=== PATIENT | female | born 1955 | race Caucasian/White ===

== ENCOUNTER → 2016-12-16 | Outpatient (CLI) | payer OTHER ==
--- NOTE | 2016-12-17 13:12 | MM ---
Reason for exam: screening (asymptomatic). Last mammogram was performed 1 year and 2 months ago. Physical Findings: A clinical breast exam by your physician is recommended on an annual basis and results should be correlated with mammographic findings. MG Screening Mammo w CAD Bilateral CC and MLO view(s) were taken. Prior study comparison: October 03, 2015, bilateral MG screening mammo w CAD. February 10, 2003, bilateral screening mammogram. The breast tissue is heterogeneously dense. This may lower the sensitivity of mammography. No significant changes when compared with prior studies. ASSESSMENT: Benign, BI-RAD 2 RECOMMENDATION: Routine screening mammogram of both breasts in 1 year.
== END | disposition home or self-care (01) ==
LOC: RADMAMWWP 10:56
PROVIDERS: ATTEND Family Medicine
DX: Z12.31 Encounter for screening mammogram for malignant neoplasm of breast (principal)

== ENCOUNTER 2020-10-06 09:00 | Emergency (ER) | payer OTHER ==
[2020-10-06 09:08] VITALS: RESP 18
[2020-10-06] MEDS ORDERED: HYDROmorphone 0.5 MG/0.5 ML SYRINGE IVP STA (09:14)
[2020-10-06] MEDS ORDERED: SODIUM CHLORIDE 0.9% 500 ML 500 ML IV STA (09:14)
[2020-10-06] MEDS ORDERED: SODIUM CHLORIDE 0.9% 1,000 ML IV STA (09:14)
[2020-10-06 09:29] LABS: Basophils # (A) 0.1 k/uL (0-0.2); Basophils % (A) 1 %; Eosinophils # (A) 0.2 k/uL (0-0.7); Eosinophils % (A) 2 %; HGB 14.5 gm/dL (11.4-16.0); Lymphocytes # (A) 1.2 k/uL (1.0-4.8); Lymphocytes % (A) 12 %; MCH 32.7 pg (25.0-35.0); MCHC 33.7 g/dL (31.0-37.0); MCV 96.9 fL (80.0-100.0); Mean Platelet Volume 7.6; Monocytes # (A) 0.4 k/uL (0-1.0); Monocytes % (A) 4 %; Neutrophils # (A) 8.1 k/uL (1.3-7.7); Neutrophils % (A) 81 %; Platelet Count 217 k/uL (150-450); RBC 4.44 m/uL (3.80-5.40); RDW 12.4 % (11.5-15.5)
[2020-10-06 09:40] LABS: Albumin 4.3 g/dL (3.5-5.0); Calcium 9.6 mg/dL (8.4-10.2); Potassium 4.3 mmol/L (3.5-5.1); Total Bilirubin 0.5 mg/dL (0.2-1.3); Total Protein 6.9 g/dL (6.3-8.2)
[2020-10-06 09:41] LABS: Appearance,Urine Clear (Clear); Bilirubin,Urine Negative (Negative); Blood,Urine Large (Negative); Color,Urine Yellow; Glucose,Urine (UA) Negative (Negative); Ketones,Urine Negative (Negative); Leukocyte Esterase,Urine Negative (Negative); Mucus,Urine Rare /hpf; Nitrite,Urine Negative (Negative); PH, Urine 5.5 (5.0-8.0); Protein,Urine Trace (Negative); RBC,Urine >182 /hpf (0-5); Specific Gravity,Urine 1.024 (1.001-1.035); Squamous Epithelial Cell,Urine 1 /hpf (0-4); Urobilinogen,Urine <2.0 mg/dL (<2.0); WBC,Urine 2 /hpf (0-5)
[2020-10-06] MEDS ORDERED: HYDROmorphone 1 MG/ML 1 ML SYRINGE IVP STA (10:04)
[2020-10-06] MEDS ORDERED: KETOROLAC 15 MG/ML 1 ML VIAL IVP STA (10:04)
--- NOTE | 2020-10-06 10:36 | CT ---
EXAMINATION TYPE: CT abdomen pelvis wo con DATE OF EXAM: 10/06/2020 COMPARISON: None INDICATION: Rt flank pain DLP: 548.6 mGycm, Automated exposure control for dose reduction was used. CONTRAST: 0 mL of Isovue 300. Study performed without Oral Contrast TECHNIQUE: Axial images were obtained from above the diaphragm to the pubic rami in the axial plane a t 5 mm thick sections. Reconstructed images are reviewed on the computer in the coronal plane. FINDINGS: Limited CT sections are obtained the lung bases. Minimal compressive atelectasis is present at the b ilateral lung bases.. CT ABDOMEN: Liver: Normal Spleen: Normal Pancreas: Mild fatty infiltration and atrophy is present Adrenal glands: The adrenal glands are normal. Gallbladder: Normal Kidneys: No masses are evident. There is moderate right hydronephrosis. There is a superior pole righ t renal calcification without obstruction measuring 0.2 cm. There is a nonobstructing 0.2 cm calcific ation in the mid lateral right kidney. There is a nonobstructing inferior pole left renal cyst calcif ication. There is a 0.1 cm nonobstructing inferior pole right renal calcification. No cysts are prese nt. There is a 0.5 cm calcification at the right ureteral pelvic junction causing obstruction. This may be the proximal right ureter. Distal hydroureter is not evident. Aorta: Minimal Vascular calcification is within the aorta. Inferior vena cava: Normal. CT PELVIS: Loops of bowel within the abdomen and pelvis are normal. Study is without oral contrast limiting bowel evaluation. Appendix: Normal as visualized. Urinary bladder: Normal. Genitourinary structures: Uterus is normal. Adnexal regions are clear Osseous structures: No suspicious lytic or sclerotic lesions. Facet degenerative changes in the mid l umbar spine. IMPRESSIONS: 1. 0.5 cm obstructing right ureteral pelvic junction stone There is moderate right hydronephrosis. 2. Bilateral nonobstructing punctate renal stones
[2020-10-06] MEDS ORDERED: HYDROcodone/APAP 5-325MG 1 EACH TAB PO STA (11:28)
[2020-10-06] MEDS ORDERED: TAMSULOSIN 0.4 MG CAP.ER.24H PO STA (11:28)
--- NOTE | 2020-10-06 11:35 | ED ---
General Adult HPI - General Chief complaint: Back Pain/Injury Stated complaint: abd pain Time Seen by Provider: 10/06/20 09:05 Source: patient, EMS, RN notes reviewed Mode of arrival: EMS Limitations: no limitations - History of Present Illness Initial comments: This is a 65-year-old female presents emergency Department chief complaint of right flank pain. Patient states symptoms started today. Patient has no history kidney stones. Nothing makes her pain feel better or worse at this time. Patient states she does feel nauseated she did have some improvement with Toradol and Zofran by EMS. No dysuria no hematuria no prior abdominal surgeries other than section. - Related Data Allergies Allergy/AdvReac Type Severity Reaction Status Date / Time No Known Allergies Allergy Verified 10/06/20 09:23 Review of Systems ROS Statement: Those systems with pertinent positive or pertinent negative responses have been documented in the HPI. ROS Other: All systems not noted in ROS Statement are negative. Past Medical History History of Any Multi-Drug Resistant Organisms: None Reported Past Surgical History: Section, Orthopedic Surgery Additional Past Surgical History / Comment(s): 2 c sections, foot surgery L foot Past Psychological History: No Psychological Hx Reported Smoking Status: Current every day smoker Past Alcohol Use History: None Reported Past Drug Use History: None Reported General Exam General appearance: alert, in no apparent distress Head exam: Present: atraumatic, normocephalic, normal inspection Respiratory exam: Present: normal lung sounds bilaterally. Absent: respiratory distress, wheezes, rales, rhonchi, stridor Cardiovascular Exam: Present: regular rate, normal rhythm, normal heart sounds. Absent: systolic murmur, diastolic murmur, rubs, gallop, clicks GI/Abdominal exam: Present: soft, tenderness, normal bowel sounds. Absent: distended, guarding, rebound, rigid Back exam: Present: CVA tenderness (R). Absent: CVA tenderness (L) Neurological exam: Present: alert Skin exam: Present: warm, dry, intact, normal color. Absent: rash Course Vital Signs 10/06/20 09:02 Temperature 97.8 F Pulse Rate 52 L Respiratory 18 Rate Blood Pressure 159/78 O2 Sat by Pulse 99 Oximetry Medical Decision Making - Medical Decision Making Patient CT review shows evidence of a 5 mm ureteral calculi. Patient's pain is improved. Patient was hydrated, was reviewed no signs of infection on her urinalysis. Patient we discharged with follow-up with urology family updated on results. - Lab Data Result diagrams: 10/06/20 09:21 10/06/20 09:21 Lab Results 10/06/20 10/06/20 10/06/20 Range/Units 09:21 09:21 09:21 WBC 10.0 (3.8-10.6) k/uL RBC 4.44 (3.80-5.40) m/uL Hgb 14.5 (11.4-16.0) gm/dL Hct 43.0 (34.0-46.0) % MCV 96.9 (80.0-100.0) fL MCH 32.7 (25.0-35.0) pg MCHC 33.7 (31.0-37.0) g/dL RDW 12.4 (11.5-15.5) % Plt Count 217 (150-450) k/uL MPV 7.6 Neutrophils % 81 % Lymphocytes % 12 % Monocytes % 4 % Eosinophils % 2 % Basophils % 1 % Neutrophils # 8.1 H (1.3-7.7) k/uL Lymphocytes # 1.2 (1.0-4.8) k/uL Monocytes # 0.4 (0-1.0) k/uL Eosinophils # 0.2 (0-0.7) k/uL Basophils # 0.1 (0-0.2) k/uL Sodium 143 (137-145) mmol/L Potassium 4.3 (3.5-5.1) mmol/L Chloride 108 H (98-107) mmol/L Carbon Dioxide 29 (22-30) mmol/L Anion Gap 6 mmol/L BUN 21 H (7-17) mg/dL Creatinine 0.86 (0.52-1.04) mg/dL Est GFR (CKD-EPI)AfAm 83 (>60 ml/min/1.73 sqM) Est GFR (CKD-EPI)NonAf 72 (>60 ml/min/1.73 sqM) Glucose 137 H (74-99) mg/dL Calcium 9.6 (8.4-10.2) mg/dL Total Bilirubin 0.5 (0.2-1.3) mg/dL AST 25 (14-36) U/L ALT 26 (4-34) U/L Alkaline Phosphatase 64 (38-126) U/L Total Protein 6.9 (6.3-8.2) g/dL Albumin 4.3 (3.5-5.0) g/dL Amylase 57 (30-110) U/L Lipase 85 (23-300) U/L Urine Color Yellow Urine Appearance Clear (Clear) Urine pH 5.5 (5.0-8.0) Ur Specific [place] 1.024 (1.001-1.035) Urine Protein Trace H (Negative) Urine Glucose (UA) Negative (Negative) Urine Ketones Negative (Negative) Urine Blood Large H (Negative) Urine Nitrite Negative (Negative) Urine Bilirubin Negative (Negative) Urine Urobilinogen <2.0 (<2.0) mg/dL Ur Leukocyte Esterase Negative (Negative) Urine RBC >182 H (0-5) /hpf Urine WBC 2 (0-5) /hpf Ur Squamous Epith Cells 1 (0-4) /hpf Urine Mucus Rare H (None) /hpf Disposition Clinical Impression: Right ureteral calculus Disposition: HOME SELF-CARE Condition: Stable Instructions (If sedation given, give patient instructions): Kidney Stones (ED) Additional Instructions: Please return to the Emergency Department if symptoms worsen or any other concerns. Is patient prescribed a controlled substance at d/c from ED?: Yes When asked, does pt state using other controlled substances?: Yes If prescribed controlled substance>3 days was MAPS reviewed?: Prescribed <3 Days If opioid is for acute pain is fill amount 7 days or less?: Yes If Rx opioid, was Start Talking consent form obtained?: Yes Referrals: Davis Harmon MD [Primary Care Provider] - 1-2 days Grady Dupont MD [STAFF PHYSICIAN] - 1-2 days Time of Disposition: 11:35
[2020-10-06 12:00] VITALS: BP 146/88; PULSE 82; TEMP 98.7
== END 2020-10-06 12:02 | disposition home or self-care (01) ==
LOC: EC 09:00
DX: N20.1 Calculus of ureter (principal); F17.200 Nicotine dependence, unspecified, uncomplicated
CPT/HCPCS: 36415; 80053; 82150; 83690; 85025; 81001; 74176; 99284; 96374; 96375; 96376; 96361 ×3; J1170 ×2; J1885

== ENCOUNTER → 2020-11-28 | Outpatient (CLI) | payer OTHER ==
--- NOTE | 2020-11-28 17:05 | MR ---
EXAMINATION TYPE: MR pancreas wo/w con DATE OF EXAM: 11/28/2020 COMPARISON: Correlation CT 10/06/2020 HISTORY: 65-year-old female K86.89, Nausea, unable to eat dense food, bloating. Technique: Multiplanar, multisequence images of the abdomen were obtained before and after administra tion of 7 mL intravenous Gadavist gadolinium contrast. FINDINGS: Liver normal size at 16.9 cm. There is diffuse geographic areas of signal loss throughout the liver s uggesting fatty infiltration. Tiny 7 mm cyst at the right hepatic dome. Bile duct measures 6 mm, within normal limits without any abnormal filling defects. Portal venous system is patent. There seems to be some thickened proximal jejunal loops, possible mild thickening of the duodenum as well. Prominent stool within the colon. The gallbladder, adrenal glands, spleen, and kidneys show no gross abnormality. Interval resolution o f the previous hydronephrosis in the right kidney. There is moderate atrophy of the pancreas. There is a bilobed cystic lesion measuring 1.2 cm at the n milind of the pancreas. Additional tiny 4 mm cyst along the posterior pancreatic body. Best seen on axia l T2 series 601 image 14 and 16. No abdominal ascites or lymphadenopathy in the upper abdomen. IMPRESSION: . 1. Moderate atrophy of the pancreas may reflect age-related change. Correlate to exclude underlying a utoimmune disease, alcoholism, or exocrine pancreatic insufficiency. 2. Mildly thickened loops of proximal small bowel and prominent stool in the colon. Malabsorption yamileth nges such as relating to exocrine pancreatic insufficiency or celiac disease are considerations. Nons pecific enteritis can also be considered. 3. A 1.2 cm bilobed cyst of the pancreatic neck and a 4 mm cyst in the posterior pancreatic body. One -year follow-up MRI recommended to reassess. 4. Hepatic steatosis.
== END ==
LOC: RADMRIMAIN 15:15
PROVIDERS: ATTEND Physician Assistant
DX: K86.2 Cyst of pancreas (principal); K86.89 Other specified diseases of pancreas; K76.0 Fatty (change of) liver, not elsewhere classified; K31.89 Other diseases of stomach and duodenum
CPT/HCPCS: 74183; A9585

== ENCOUNTER 2020-12-20 07:32 | Day surgery (SDC) | payer OTHER ==
[2020-12-18 12:27] VITALS: BMI 24.0
[~2020-12-20 07:32] MED LIST: DEXAMETHASONE SOD PHOSPHATE 4 MG/ML 1 ML VIAL IV ONE; HYDROmorphone 0.5 MG/0.5 ML SYRINGE IVP PRN; LACTATED RINGERS 1,000 ML IV SCH; ONDANSETRON 4 MG/2 ML VIAL IVP ONE
[2020-12-20 08:07] VITALS: TEMP 97.7
[2020-12-20] MEDS ORDERED: PROPOFOL 10 MG/ML 20 ML VIAL IV ONE (08:13)
[2020-12-20] MEDS ORDERED: LIDOCAINE 1% INJ 10MG/ML (20 ML MDV) ONE (08:13)
--- NOTE | 2020-12-20 08:55 | P.PCN ---
Date of Procedure: 12/20/20 Description of Procedure: Brief history: Patient is a pleasant 65-year-old female presenting for outpatient EGD and colonoscopy for evaluation of nausea, abdominal bloating and screening for malignant neoplasm of the colon. Patient was seen in clinic reporting symptoms of feeling bloated for several months. Symptoms are worse postprandial. She reports associated nausea. She also has very irritation. No prior EGD or colonoscopy. Procedure performed: Esophagogastroduodenoscopy with biopsy Colonoscopy Estimated blood loss: Minimal. Preoperative diagnosis: Nausea, abdominal bloating, regurgitation, screening for malignant neoplasm of the colon, no prior colonoscopy Anesthesia: [facility] [place] Procedure: After informed consent was obtained from the patient was brought into the endoscopy unit and IV sedation was administered by anesthesia under continuous monitoring. Initially upper endoscopy was done. The Olympus GF 190 video endoscope was inserted into the mouth and esophagus intubated without any difficulty and was gradually advanced into the stomach and duodenum and carefully examined. The bulb and second part of the duodenum appeared normal, with biopsies taken to rule out celiac sprue. The scope was then withdrawn into the stomach adequately insufflated with air and upon careful examination the antrum and body, cardia and fundus appeared normal, with some mild punctate erythema in the antrum and body suggestive of mild gastritis with biopsies taken. The scope was then withdrawn into the esophagus. The GE junction was located at 37 cm to the incisors and biopsied. A small 1 cm hiatal hernia was noted. It appeared regular with no erythema erosions or ulcerations. Rest of the esophagus appeared normal. Patient tolerated the procedure well. At this time the patient continued to remain sedation. Initial digital rectal examination was normal. Olympus pediatric video colonoscope was then inserted into the rectum and gradually advanced to the cecum without any difficulty. Careful examination was performed as the scope was gradually being withdrawn. The prep was excellent. The cecum, ascending colon, transverse colon, descending colon, sigmoid colon and rectum appeared normal, except for a few scattered diverticula in the left colon which was somewhat tortuous and fixed and able to be traversed with a pediatric colonoscope. Retroflexion was performed in the rectum and no lesions were noted, moderate internal hemorrhoids. Patient tolerated the procedure well. Impression: 1. Mild gastritis. Biopsies of the duodenum, antrum and body, GE junction. 2. Mild left colonic diverticulosis. Internal hemorrhoids. Otherwise normal- appearing colon from rectum to cecum, sigmoid was somewhat fixed and tortuous however able to be traversed with the pediatric colonoscope. Recommendations: Findings of this examination were discussed with the patient as well as her family. Okay to resume diet. Okay to resume medications. Await pathology from biopsies. Follow up in the GI clinic as scheduled for further management. Recommend repeat screening colonoscopy in 10 years or sooner if any signs or symptoms which warrant further evaluation develop.
[2020-12-20 09:00] VITALS: PULSE 60; RESP 16
[2020-12-20 09:17] VITALS: BP 125/70
== END 2020-12-20 09:57 | disposition home or self-care (01) ==
LOC: ORWHC2ENDO 07:32
PROVIDERS: ATTEND Internal Medicine
DX: K44.9 Diaphragmatic hernia without obstruction or gangrene (principal); K57.30 Diverticulosis of large intestine without perforation or abscess without bleeding; Q43.8 Other specified congenital malformations of intestine; K64.8 Other hemorrhoids; K29.80 Duodenitis without bleeding; K29.70 Gastritis, unspecified, without bleeding; K31.89 Other diseases of stomach and duodenum; I10 Essential (primary) hypertension; F17.200 Nicotine dependence, unspecified, uncomplicated; Z87.442 Personal history of urinary calculi; G43.909 Migraine, unspecified, not intractable, without status migrainosus; Z98.890 Other specified postprocedural states; Z79.899 Other long term (current) drug therapy; Z91.040 Latex allergy status
CPT/HCPCS: 88305; 45378; 43239; J2001; J2704

== ENCOUNTER → 2021-07-16 | Outpatient (CLI) | payer OTHER ==
--- NOTE | 2021-07-17 05:30 | MR ---
EXAMINATION TYPE: MR pancreas wo/w con DATE OF EXAM: 07/16/2021 COMPARISON: 11/28/2020 HISTORY: Cyst of Pancreas CONTRAST: Standard multiplanar, multisequence MRI departmental protocol utilizing 6.5 mL intravenous Gadavist g adolinium contrast. With and without contrast. There is 10 mm cyst in the superior right lobe of the liver. The bile ducts are not dilated. Spleen i s intact. Stomach is intact. The pancreatic duct appears normal. The common bile duct appears normal. There is no adrenal mass. Kidneys show normal size and contour. There is no hydronephrosis. There is no sign of retroperitoneal adenopathy. There is no ascites or free air. There is no bowel obstruction . There is no evidence of pleural effusion. There is a bilobed cyst in the anterior inferior aspect of the pancreas. This measures 12 x 8 mm. The re is no pathologic enhancement. There is normal enhancement of both kidneys with IV contrast. There is normal enhancement of the portal venous system. IMPRESSION: There is bilobed 12 mm cyst near the pancreatic head which is not changed compared to previous MR sca n. This is suggestive of benign disease. No dilated ducts. Small hepatic cyst is stable compared to old exam.
== END | disposition home or self-care (01) ==
LOC: RADMRIMAIN 11:50
PROVIDERS: ATTEND Internal Medicine Gastroenterology
DX: K86.2 Cyst of pancreas (principal)
CPT/HCPCS: 74183; A9585